=== PATIENT | male | born 1990 | race Caucasian/White ===

== ENCOUNTER 2017-08-07 01:25 | Emergency (ER) | payer MEDICAID ==
--- NOTE | 2017-08-07 01:29 | EDPHY ---
H & P Source: Patient, EMS, Old records - Personal History Tetanus Vaccine Date: 2013 - Medical/Surgical History Hx Asthma: No Hx Chronic Respiratory Disease: No Hx Diabetes: No Hx Cardiac Disease: No Hx Renal Disease: No Hx Cirrhosis: No Hx Alcoholism: No Hx HIV/AIDS: No Hx Splenectomy or Spleen Trauma: No Other PMH: SI with attemptsx2, personality disorder, PTSD, takosubos (see registered dental hygienist) - Social History Smoking Status: Current every day smoker Time Seen by Provider: 08/07/17 01:26 HPI/ROS: HPI The patient presents brought in by ambulance from the crisis Center on M1 hold for medical evaluation. Apparently, the patient has been feeling suicidal for the last several days and his symptoms became more severe today so he brought himself to the crisis Center. He says he is having suicidal thoughts from morning until night and is worried that he may act on them. He does have prior history of suicide attempt. His symptoms became worse recently, he attributes this to divorce from his partner. He does admit to amphetamine use over the last 2 days. He says he is not sleeping or eating well. He has been taking his medications as prescribed, he is concerned that he may overdose on them. REVIEW OF SYSTEMS Constitutional: No fever, no chills. Eyes: No discharge. ENT: No sore throat. Cardiovascular: No chest pain, no palpitations. Respiratory: No cough, no shortness of breath. Gastrointestinal: No abdominal pain, no vomiting. Genitourinary: No hematuria. Musculoskeletal: No back pain. Skin: No rashes. Neurological: No headache. PMHx: Prior history of suicide attempt Soc Hx: Cigarette use, amphetamine use PHYSICAL General Appearance: Alert, no distress Eyes: Pupils equal and round no pallor or injection ENT, Mouth: Mucous membranes moist Respiratory: There are no retractions, lungs are clear to auscultation Cardiovascular: Regular rate and rhythm Gastrointestinal: Abdomen is soft and non-tender, no masses, bowel sounds normal Neurological: A&O, moves all extremities Skin: Warm and dry, no rashes Musculoskeletal: Neck is supple non tender Extremities: symmetrical, full range of motion Psychiatric: Patient is oriented X 3, there is no agitation (Riguzzi,Mary Ann) Constitutional: Initial Vital Signs Temperature (C) 36.8 C 08/07/17 01:46 Heart Rate 74 08/07/17 01:46 Respiratory Rate 16 08/07/17 01:46 Blood Pressure 126/71 H 08/07/17 01:46 O2 Sat (%) 97 08/07/17 01:46 O2 Delivery Mode Room Air Allergies/Adverse Reactions: No Known Allergies Allergy (Unverified 08/07/17 01:44) Home Medications: Medication Instructions Recorded Propranolol HCl 08/07/17 Risperdal 08/07/17 lamOTRIGine 08/07/17 Medical Decision Making ED Course/Re-evaluation: Patient is re-evaluated by me at 7:07 a.m.. He is resting comfortably. He is awaiting evaluation at 1:00 p.m. for tox screen positive for amphetamines and PCP. Patient has no complaints Patient has remained stable. He is being assessed by mental health currently. Care to Dr. Seaman at 3 pm (Yannick Rodgers) Differential Diagnosis: This is a 27-year-old man with past psychiatric history including suicide attempts who presents brought in by ambulance on an M1 hold for suicidal ideation with plan to overdose on his medications. On exam, he has normal vital signs and is generally well-appearing. He denies any medical complaints. He does admit to recent amphetamine use. Differential diagnosis includes depression with suicidal ideation, bipolar disorder with suicidal ideation, substance abuse, acute stress response. In the emergency department, labs were checked, urine toxicology was positive for PCP, amphetamine, marijuana. He was given a dose of Zyprexa for agitation. The patient's slept. Because he his urine toxicology was positive, mental health will evaluate him later in the day. At approximately 7:00 a.m., I anticipate the case will be signed out to the oncoming provider Dr. Rodgers pending psychiatric evaluation. (Mary Ann Pelayo ) Other Provider: Patient turned over to my care at 1500. At 1650, patient has been evaluated by mental health who recommends terminating hold and discharging patient with resources. (Stevie Seaman) - Data Points Laboratory Results: Laboratory Results 08/07/17 01:40 08/07/17 01:40 Medications Given: Discontinued Medications Olanzapine (Zyprexa Zydis) 10 mg PO EDNOW ONE Stop: 08/07/17 01:56 Last Admin: 08/07/17 01:57 Dose: 10 mg Departure - Departure Disposition: Home, Routine, Self-Care Clinical Impression: Suicidal ideation, Polysubstance abuse Condition: Good Instructions: Suicide Prevention for Adults (ED) Referrals: Patient,NotPresent [Unknown] - As per Instructions
[2017-08-07] MEDS ORDERED: OLANZapine DISINTEGR 10 MG TAB ONE (01:49)
[2017-08-07] MEDS ORDERED: OLANZapine DISINTEGR 10 MG TAB PO ONE (01:55)
[2017-08-07 01:58] LABS: PLATELET COUNT 218 10^3/uL (150-400)
[2017-08-07 17:11] VITALS: BP 102/65; PULSE 65; RESP 16; TEMP 98.4; O2SAT 98
== END 2017-08-07 17:23 | disposition home or self-care (01) ==
LOC: EDUNIT#
DX: R45.851 Suicidal ideations (principal); F19.10 Other psychoactive substance abuse, uncomplicated; F17.210 Nicotine dependence, cigarettes, uncomplicated
CPT/HCPCS: 80305; G0480

== ENCOUNTER 2017-10-14 08:58 | Emergency (ER) | payer MEDICAID ==
--- NOTE | 2017-10-14 09:11 | EDPHY ---
General - History Smoking Status: Current every day smoker Narrative: CHIEF COMPLAINT: M1, suicidal HISTORY OF PRESENT ILLNESS: Patient presents by [place] [employer] on an M1 hold for suicidal ideation. Per M1 hold documentation, he was walking in traffic, exhibiting paranoid delusions, and admitting to suicidal ideation. He tells me that he wanted to because he has been unhappy. He has plan was to walk on front of traffic. He says that he did not care for anyone else was hurt when doing so. He denies any complaints otherwise. He does see [facility] for [facility] and was taken there today but sent here for clearance prior to further evaluation. No other associated complaints or modifying factors. PSYCHIATRIC DIAGNOSES: PTSD, attention deficit hyperactivity disorder, MRA, depression PRIOR PSYCHIATRIC EVALUATIONS: Unknown M1/DETAINER: [place] [employer], October 14, 2017, 8:25 a.m. REVIEW OF SYSTEMS: Ten systems reviewed and are negative unless otherwise noted in the HPI EXAMINATION General Appearance: Alert, no distress, unkempt Head: normocephalic, atraumatic Eyes: Pupils equal and round, no conjunctival pallor or injection ENT, Mouth: Mucous membranes moist Neck: Normal inspection, supple, non-tender Respiratory: No retractions or distress Cardiovascular: Regular rate. Good signs of perfusion Gastrointestinal: Abdomen is soft and nondistended. Back: non-tender, no bony abnormalities Neurological: GCS 15. A&O, nonfocal, normal gait Skin: Warm and dry, no rash. Unclean skin Extremities: Nontender, no pedal edema Psychiatric: Depressed mood and flat affect. Exhibiting evidence of paranoid delusions and suicidal ideation with plan of stepping out in front of traffic. DIFFERENTIAL DIAGNOSES: Including but not limited to suicidal ideation, depression, schizophrenia, schizoaffective, bipolar disorder MDM: 9:15 a.m. M1 hold complaint [place] [employer] due to schizophrenia with paranoid delusions, walking in front of traffic with statements of wanting to and willing to harm others to do so. 10:00 a.m. Patient is medically cleared for psychiatric evaluation. 1:00 p.m. Notified by mental health professional. He has been evaluated she recommends placement [facility]SU. She is attempting acceptance at this time. 3:00 p.m. Patient resting comfortably. Still awaiting placement 5:00 p.m. At this time I will hand the care of the patient over to Dr. Seaman. EPS is still attempting to find placement for the patient for inpatient care. Please see his note for final disposition SUPERVISION: Patient was independently examined, but I discussed the case with my secondary supervising physician Dr. Rodgers ([facility]) 0905: Patient has been accepted at [facility] and transport has been arranged. (Niranjan Cummins) Medical Decision Making: I did not see this patient while he was in the emergency department. However his care was discussed with the PA while the patient was in the department. I agree with treatment plan and management (Yannick Rodgers) - Objective Vital Signs: Initial Vital Signs Temperature (C) 36.6 C 10/14/17 09:44 Heart Rate 71 10/14/17 09:44 Respiratory Rate 16 10/14/17 09:44 Blood Pressure 125/75 H 10/14/17 09:44 O2 Sat (%) 97 10/14/17 09:44 O2 Delivery Mode Room Air Allergies/Adverse Reactions: No Known Allergies Allergy (Unverified 08/07/17 01:44) Home Medications: Medication Instructions Recorded Lexapro 10/14/17 Prazosin HCl 10/14/17 Vyvanse 10/14/17 Laboratory Results: Laboratory Results 10/14/17 09:10 10/14/17 09:10 Medications Given: Discontinued Medications Olanzapine (Zyprexa Zydis) 10 mg PO EDNOW ONE Stop: 10/14/17 23:00 Last Admin: 10/14/17 23:02 Dose: Not Given Departure - Departure Disposition: Acute [facility] Clinical Impression: Suicidal ideation Condition: Fair Referrals: Patient,NotPresent [Unknown] - As per Instructions
[2017-10-14 09:33] LABS: PLATELET COUNT 376 10^3/uL (150-400)
[2017-10-14 22:52] VITALS: RESP 18; TEMP 98.6
[2017-10-14] MEDS ORDERED: OLANZapine DISINTEGR 10 MG TAB PO ONE (22:59)
[2017-10-14] MEDS ORDERED: OLANZapine 5 MG TAB ONE (23:00)
[2017-10-15 09:22] VITALS: BP 116/81; PULSE 100; O2SAT 94
== END 2017-10-15 09:23 | disposition short-term general hospital (02) ==
DX: R45.851 Suicidal ideations (principal)
CPT/HCPCS: 80305; G0480

== ENCOUNTER 2017-10-18 00:35 | Emergency (ER) | payer MEDICAID ==
--- NOTE | 2017-10-18 00:42 | EDPHY ---
H & P Source: Patient, EMS - Personal History Tetanus Vaccine Date: 2013 - Medical/Surgical History Hx Asthma: No Hx Chronic Respiratory Disease: No Hx Diabetes: No Hx Cardiac Disease: No Hx Renal Disease: No Hx Cirrhosis: No Hx Alcoholism: No Hx HIV/AIDS: No Hx Splenectomy or Spleen Trauma: No Other PMH: SI with attemptsx2, personality disorder, PTSD, takosubos (see engineering design manager) - Social History Smoking Status: Current every day smoker HPI/ROS: HPI CHIEF COMPLAINT: Suicidal ideation, M1 hold by police HISTORY OF PRESENT ILLNESS: This patient is a 27-year-old male, presents emergency room by EMS and police. He is on M1 hold. Patient presents to the emergency room with suicidal ideation. His plan is to walk in front of traffic and get hit by a car. Past Medical History: Anxiety, PTSD, depression Past Surgical History: No recent surgery Social History: Smokes tobacco, homeless, denies drug use. Family History: Noncontributory ROS REVIEW OF SYSTEMS: A comprehensive 10 point review of systems is otherwise negative aside from elements mentioned in the history of present illness. Exam Constitutional appears unkept, disheveled, triage nursing summary reviewed, vital signs reviewed, awake/alert. Eyes normal conjunctivae and sclera, EOMI, PERRLA. HENT normal inspection, atraumatic, moist mucus membranes, no epistaxis, neck supple/ no meningismus, no raccoon eyes. Respiratory clear to auscultation bilaterally, normal breath sounds, no respiratory distress, no wheezing. Cardiovascular rate normal, regular rhythm, no murmur, no edema, distal pulses normal. Gastrointestinal soft, non-tender, no rebound, no guarding, normal bowel sounds, no distension, no pulsatile mass. Genitourinary no CVA tenderness. Musculoskeletal no midline vertebral tenderness, full range of motion, no calf swelling, no tenderness of extremities, no meningismus, good pulses, neurovascularly intact. Skin pink, warm, & dry, no rash, skin atraumatic. Neurologic awake, alert and oriented x 3, AAOx3, moves all 4 extremities equally, motor intact, sensory intact, CN II-XII intact, normal cerebellar, normal vision, normal speech. Psychiatric flat affect, suicidal ideation Heme/Lymph/Immune no lymphadenopathy. Differential Diagnosis: Includes but is not limited to in a particular order mood disorder, bipolar disorder, depression, anxiety, PTSD, substance abuse, suicidal ideation Medical Decision Making: Patient on M1 hold by police. Patient will need blood draw for medical clearance. Then mental evaluation. Re-evaluation: 0733: No acute events overnight patient has been sleeping. Patient is positive for methamphetamine however he takes Adderall for attention deficit hyperactivity disorder. Patient is pending inpatient psychiatric hospitalization for suicidal ideation history of anxiety and depression. As well as PTSD. Patient is signed over at 7:[address] Heidy Wheeler. (Nicho Jackmna) Constitutional: Initial Vital Signs Temperature (C) 36.7 C 10/18/17 00:54 Heart Rate 76 10/18/17 00:54 Respiratory Rate 16 10/18/17 00:54 Blood Pressure 130/82 H 10/18/17 00:54 O2 Sat (%) 97 10/18/17 00:54 O2 Delivery Mode Room Air Allergies/Adverse Reactions: No Known Allergies Allergy (Unverified 08/07/17 01:44) Home Medications: Medication Instructions Recorded Lexapro 10/14/17 Prazosin HCl 10/14/17 Vyvanse 10/14/17 Medical Decision Making Other Provider: 4:30 a.m. the patient has been accepted at [facility] by Dr. Aguirre. Transfer paperwork completed. (Alex Guillen) I assumed care of this patient at 7:[address] Jackman. He has undergone a mental health evaluation and care awaiting placement. He has been cooperative while under my care. He has no new complaints or requests. His care will be transferred to Dr. Guillen at change of shift (Heidy Wheeler) - Data Points Laboratory Results: Laboratory Results 10/18/17 00:47 10/18/17 00:47 Medications Given: Discontinued Medications Diphenhydramine HCl (Benadryl) 50 mg PO EDNOW ONE Stop: 10/18/17 01:20 Last Admin: 10/18/17 01:24 Dose: 50 mg Lorazepam (Ativan) 1 mg PO ONCE ONE Stop: 10/18/17 16:37 Last Admin: 10/18/17 16:40 Dose: 1 mg Nicotine Polacrilex (Nicorette) 2 mg B PRN PRN PRN Reason: Nicotine Withdrawal Stop: 04/16/18 15:13 Last Admin: 10/18/17 15:21 Dose: 2 mg Departure - Departure Disposition: Other Psych, Not [place] Clinical Impression: Suicidal ideation Condition: Fair Referrals: NONE *PRIMARY CARE P,. [Primary Care Provider] - As per Instructions
[2017-10-18 00:59] LABS: PLATELET COUNT 299 10^3/uL (150-400)
[2017-10-18] MEDS ORDERED: diphenhydrAMINE 25 MG CAP PO ONE (01:19)
[2017-10-18 15:08] VITALS: BP 116/69; RESP 18; TEMP 99
[2017-10-18] MEDS: NICOTINE POLACRILEX 2 MG GUM B PRN ×2 (15:20→15:21)
[2017-10-18 16:01] VITALS: PULSE 75; O2SAT 95
[2017-10-18] MEDS ORDERED: LORazepam 1 MG TAB PO ONE (16:36)
== END 2017-10-18 17:30 ==
LOC: EDUNIT#
DX: R45.851 Suicidal ideations (principal); F17.200 Nicotine dependence, unspecified, uncomplicated
CPT/HCPCS: 80305; G0480

== ENCOUNTER 2017-12-07 14:20 | Inpatient (IN) | payer MEDICAID ==
[2017-12-07] MEDS ORDERED: NALOXONE HCL 0.4 MG/ML INJ ONE (14:33)
--- NOTE | 2017-12-07 14:42 | EDPHY ---
H & P Time Seen by Provider: 12/07/17 14:24 HPI/ROS: HPI Found down. Heroin overdose. 27-year-old male by ambulance. This patient reports that he injected over g of heroin earlier this morning. He was found by bystanders on the [place] bike past cyanotic in pulseless. CPR was administered by bystanders. After about 2- 3 minutes of CPR the patient suddenly came to and sat up. On EMS arrival he was sitting upright. He was responding to questions but appeared sedated and confused. No history of trauma. Patient admits to attempted suicide by heroin overdose. Has a prior history of suicide attempts. Long history of heroin abuse. ROS: Constitutional: No fever, no chills. As above. Eyes: No discharge. No changes in vision. ENT: No sore throat. No nasal congestion or rhinorrhea. Respiratory: No cough. No shortness of breath. Cardiac: No chest pain, no palpitations. Gastrointestinal: No abdominal pain, no vomiting, no diarrhea. Genitourinary: No hematuria. No dysuria or increased frequency with urination. Musculoskeletal: No back pain. No neck pain. No myalgias or arthralgias. Skin: No rashes. Neurological: No headache. No focal weakness or altered sensation. Past medical history: Suicide attempt x2, major depressive disorder, personality disorder, PTSD, takotsubo cardiomyopathy. Social history: Smoker. Homeless. Currently here by himself. Denies alcohol. Denies other ingestion. As above. Physical Exam: General Appearance: Alert, flat affect. Dirty, disheveled in appearance. This patient is responding to questions appropriately and in full sentences. This patient appears generally well-hydrated and well-nourished. Eyes: Pupils equal and round small in symmetrically reactive at 2-1 mm. No lid edema, erythema or injection. ENT, Mouth: Mucous membranes are moist. The pharyngeal tissues are unremarkable. No edema or swelling. No asymmetry suggestive of abscess. No erythema or exudates. No tongue lacerations or abrasions. Respiratory: There are no retractions, lungs are clear to auscultation with good air movement bilaterally. Cardiovascular: Regular rate and rhythm. No murmur. Gastrointestinal: Abdomen is soft and nontender, no masses, bowel sounds normal. No focal tenderness at McBurney's point. No Barajas sign. Neurological: Motor sensory function is grossly intact. Cranial nerves are normal. Cerebellar function intact. Skin: Warm and dry, no rashes. Musculoskeletal: Neck is supple and nontender. Extremities are symmetrical. All joints range without pain or impingement. Psychiatric: No agitation. Flat affect. Database: EKG: EKG time is 4:10 p.m.; EKG shows a narrow complex normal sinus rhythm with a ventricular rate of 86. Early repolarization pattern. Probable left ventricular hypertrophy. The NM, QRS, QT intervals are within normal limits. There are no ST-T wave changes indicative of ischemic or injury pattern. No evidence of right heart strain. Interpreted by me. Imaging: Chest x-ray AP portable; the cardiac mediastinal silhouette is unremarkable. No evidence of infiltrate or pneumothorax. No acute cardiopulmonary disease process noted. Interpreted by me. Procedures: Emergency department course: IV established by EMS. Patient placed on a manager cardiac. Placed on oxygen 2 L by nasal cannula. Vital signs reviewed. Patient placed on a detainer at 2: 40 p.m.. [facility] notified. Narcan at the bedside. 3:15 p.m., the patient has been complaining of itching. He was given 25 mg of IV Benadryl. 4:30 p.m., patient transferred to room 17. Laboratory work and drug screens reviewed. Urine drug significant for marijuana and opiates. Patient medically cleared from my perspective for behavioral health evaluation. 5:20 p.m. I spoke with Faye with [facility]. He was placed on an M1 hold at this time as well. 6:30 p.m., the patient is dropping his pulse ox when he is not on nasal cannula oxygen into the upper 80s. Plan at this time will be to admit him to the ICU for observation and further metabolism. [facility] is aware of this. There they will evaluate the patient when he is medically clear. Chest x-ray will be obtained shortly. I spoke with on-call hospitalist Dr. Campos. Case discussed in detail with her. She accepts the patient for admission. The patient was admitted to the ICU in stable condition. Differential Diagnosis: The differential diagnosis on this patient includes but is not limited to heroin overdose, suicide attempt, major depression. Assault, traumatic brain injury, other significant traumatic injury, arrhythmia unlikely. This represents a partial list of diagnoses considered. These considerations are based on history, physical exam, past history, reassessment and diagnostic testing. Smoking Status: Current every day smoker Constitutional: Initial Vital Signs Heart Rate 81 12/07/17 14:25 Respiratory Rate 20 12/07/17 14:25 Blood Pressure 132/88 H 12/07/17 14:25 O2 Sat (%) 100 12/07/17 14:25 O2 Delivery Mode Nasal Cannula O2 (L/minute) 2 Allergies/Adverse Reactions: No Known Allergies Allergy (Unverified 12/07/17 14:34) Home Medications: Medication Instructions Recorded Lexapro 10/14/17 Prazosin HCl 10/14/17 Vyvanse 10/14/17 Gabapentin 12/07/17 Medical Decision Making - Data Points Laboratory Results: Laboratory Results 12/07/17 14:21 12/07/17 14:21 12/07/17 12/07/17 12/07/17 15:50 14:21 14:21 WBC 7.98 10^3/uL 10^3/uL (3.80-9.50) RBC 5.30 10^6/uL 10^6/uL (4.40-6.38) Hgb 16.2 g/dL g/dL (13.7-17.5) Hct 48.9 % % (40.0-51.0) MCV 92.3 fL fL (81.5-99.8) MCH 30.6 pg pg (27.9-34.1) MCHC 33.1 g/dL g/dL (32.4-36.7) RDW 14.1 % % (11.5-15.2) Plt Count 280 10^3/uL 10^3/uL (150-400) MPV 11.2 fL fL (8.7-11.7) Neut % (Auto) 51.8 % % (39.3-74.2) Lymph % (Auto) 38.0 % % (15.0-45.0) [place] % (Auto) 6.9 % % (4.5-13.0) Eos % (Auto) 1.9 % % (0.6-7.6) Baso % (Auto) 1.0 % % (0.3-1.7) Nucleat RBC Rel Count 0.0 % % (0.0-0.2) Absolute Neuts (auto) 4.14 10^3/uL 10^3/uL (1.70-6.50) Absolute Lymphs (auto) 3.03 10^3/uL H 10^3/uL (1.00-3.00) Absolute Monos (auto) 0.55 10^3/uL 10^3/uL (0.30-0.80) Absolute Eos (auto) 0.15 10^3/uL 10^3/uL (0.03-0.40) Absolute Basos (auto) 0.08 10^3/uL 10^3/uL (0.02-0.10) Absolute Nucleated RBC 0.00 10^3/uL 10^3/uL (0-0.01) Immature Gran % 0.4 % % (0.0-1.1) Immature Gran # 0.03 10^3/uL 10^3/uL (0.00-0.10) Sodium 145 mEq/L mEq/L (135-145) Potassium 4.4 mEq/L mEq/L (3.5-5.2) Chloride 105 mEq/L mEq/L (97-110) Carbon Dioxide 28 mEq/l mEq/l (22-31) Anion Gap 12 mEq/L mEq/L (8-16) BUN 6 mg/dL L mg/dL (7-23) Creatinine 0.7 mg/dL mg/dL (0.7-1.3) Estimated GFR > 60 Glucose 171 mg/dL H mg/dL (70-100) Calcium 9.1 mg/dL mg/dL (8.5-10.4) Salicylates < 1.0 mg/dL L mg/dL (2.0-20.0) Urine Opiates Screen NON-NEGATIVE H (NEGATIVE) Acetaminophen < 10 mcg/mL L mcg/mL (10-30) Urine Barbiturates NEGATIVE (NEGATIVE) Ur Phencyclidine Scrn NEGATIVE (NEGATIVE) Ur Amphetamine Screen NEGATIVE (NEGATIVE) U Benzodiazepines Scrn NEGATIVE (NEGATIVE) Urine Cocaine Screen NEGATIVE (NEGATIVE) U Marijuana (THC) Screen NON-NEGATIVE H (NEGATIVE) Ethyl Alcohol < 10 mg/dL mg/dL (0-10) Medications Given: Discontinued Medications Diphenhydramine HCl (Benadryl Injection) 25 mg IVP EDNOW ONE Stop: 12/07/17 14:55 Last Admin: 12/07/17 14:57 Dose: 25 mg Nicotine (Nicoderm Cq) 21 mg TD EDNOW ONE Stop: 12/07/17 17:17 Last Admin: 12/07/17 17:21 Dose: 21 mg Departure - Departure Disposition: [facility] Inpatient Acute Clinical Impression: Heroin overdose, Suicide attempt, Hypoxia Referrals: Patient,NotPresent [Unknown] - As per Instructions
[2017-12-07 14:54] LABS: PLATELET COUNT 280 10^3/uL (150-400)
--- NOTE | 2017-12-07 16:12 | CPEKG ---
Heart Rate: 86 RR Interval: 698 P-R Interval: 140 QRSD Interval: 102 QT Interval: 360 QTC Interval: 431 P [place]: 56 QRS [place]: 47 T Wave [place]: 47 EKG Severity - ABNORMAL ECG - EKG Impression: SINUS RHYTHM EKG Impression: PROBABLE LEFT VENTRICULAR HYPERTROPHY EKG Impression: ST ELEV, PROBABLE NORMAL EARLY REPOL PATTERN Electronically Signed By: Linda Seymour 07-Dec-2017 20:28:12
[2017-12-07] MEDS ORDERED: NICOTINE 21 MG/24 HR PATCH TD ONE (17:16)
[2017-12-07] MEDS ORDERED: ONDANSETRON 4 MG/2 ML VIAL IVP PRN (18:36)
[2017-12-07] MEDS ORDERED: ONDANSETRON DISINTEGRATING 4 MG TAB PO PRN (18:36)
[2017-12-07] MEDS ORDERED: ACETAMINOPHEN 325 MG TAB PO PRN (18:36)
[2017-12-07] MEDS ORDERED: NS 1,000 ML IV ONE (20:12)
[2017-12-07] MEDS: NICOTINE POLACRILEX 2 MG GUM B PRN (20:32)
[2017-12-07] MEDS ORDERED: OLANZapine 5 MG TAB ONE (21:01)
[2017-12-07] MEDS: OLANZapine 10 MG TAB PO SCH (21:12)
[2017-12-07] MEDS ORDERED: IBUPROFEN 600 MG TAB PO PRN (22:16)
--- NOTE | 2017-12-07 22:31 | GHP ---
[f rep st] HISTORY AND PHYSICAL DATE OF ADMISSION: 12/07/2017 CHIEF COMPLAINT: Suicide attempt. HISTORY OF PRESENT ILLNESS: 27-year-old male brought in by ambulance after injecting over a gram of heroin earlier today. He was [place] by bystanders on [place] [address], cyanotic, pulseless. CPR was administered. After 2-3 minutes, he suddenly came to and sat up. He admits to suicide by heroin. He says this is the first time he has ever used this drug. He does have a history of prior suicide a ttempts. He states that he is feeling depressed and has nothing to live for. Upon ER physician inte [place], it appears that he has been using heroin longer. Patient states his best friend recently and that is why he has been more depressed. Denies emery ucinations, but has intruding thoughts. Currently denies any chest pain, shortness of breath, dizzin ess, or lightheadedness. He says he is physically okay, but his main issue is in his head. He is followed at [facility] and said he just saw them yesterday. REVIEW OF SYSTEMS: I completed a 10-point review of systems, negative except as noted in HPI. PAST MEDICAL HISTORY: Suicide attempt x2, major depressive disorder, personality disorder, PTSD, his tory of Takotsubo cardiomyopathy. SOCIAL HISTORY: Smokes a pack a day, living at the homeless care home. Denies alcohol. Per my interv iew, denies heroin abuse, but has endorsed it to others. FAMILY HISTORY: Mother, depression. PAST SURGICAL HISTORY: None. HOME MEDICATIONS: Prazosin, Zyprexa 20 mg q.h.s., Vyvanse 20 daily, gabapentin 600 mg t.i.d., Lexapr o 20 mg daily, Pristiq 100 mg daily. ALLERGIES: No known drug allergies. PHYSICAL EXAMINATION: VITAL SIGNS: Temperature 36.5, blood pressure is 123/73, heart rate in the 70 s, respirations 14, 92% on room air. GENERAL: Sitting up, disheveled, anxious, rocking back and for th. HEENT: Kev cheeks and face, dry mucous membranes. CV: Regular rate and rhythm. No murmurs, gallops, or rubs. LUNGS: Clear. Diminished at the bases. ABDOMEN: Soft, nontender, nondistended . Positive bowel sounds. : No [place]. MUSCULOSKELETAL: 5/5 upper and lower extremity strength. NEURO: 2 through 12 intact. PSYCH: He is anxious. Has a flat affect. He is alert and oriented x3 . LABS: WBC 7.9, hemoglobin 16, hematocrit 48, platelets 280. Sodium 145, potassium 4.4, chloride 105 , carbon dioxide 28, creatinine 0.7, glucose 171. Chest x-ray is personally reviewed by me. Bilateral streaky opacities, but no . EKG is personally reviewed by me. LVH, ST-elevation, which appears to be repolarization. No old to compare. ASSESSMENT/PLAN: 1. Suicide attempt, secondary to heroin injection. Endorses suicidal ideations and thoughts. He is placed on an M1 hold. Will be monitored in the intensive care unit. Negative salicylate and Tyleno l levels. Patient is followed by [facility]. Will call [facility] in the morning. 2. Pulseless secondary to heroin overdose. Resuscitated by bystander with cardiopulmonary resuscita tion. He is currently hemodynamically stable. Electrocardiogram shows left ventricular hypertrophy, probably repolarization. Check a troponin. 3. Heroin/tetrahydrocannabinol abuse: Patient was counseled on cessation. 4. History of depression/post traumatic stress disorder, personality disorder: Will resume his home Zyprexa tonight. We will discuss with the psychiatric team in the morning on his other medications. 5. Diet: Regular. 6. Deep venous thrombosis prophylaxis low risk. 7. Patient warrants observation admission given acute suicide attempt, cardiac arrest, requiring tel emetry, pulse oximetry, and further psychiatric evaluation. /[id number]/MODL
[2017-12-07] MEDS: LORazepam 1 MG TAB PO PRN (23:16)
--- NOTE | 2017-12-08 09:23 | PDMN ---
Medical Necessity Medical necessity: Pt on M1 hold, meets IP criteria; est los >2 mn for suicide attempt & cardiac arrest secondary to heroin overdose; admit to ICU for further monitoring & Psych eval; hx suicide attempt x2, major depressive disorder, personality disorder, PTSD, homelessness & Takotsubo cardiomyopathy; per H&P & order 12/07/17
[2017-12-08] MEDS: NICOTINE POLACRILEX 2 MG GUM B PRN (09:25)
--- NOTE | 2017-12-08 12:21 | ASMTCASEMG ---
Living Arrangements What is your living Answers: Alone arrangement? Who do you live with? Type Of Residence What kind of residence do Answers: Homeless you live in? Discharge Plan Comments Coordination Status Comments Notes: Patient is a 27yo single male who admits to suicide by heroin. Patient was found by bystanders on the [place] bike path where CPR was administered and then he was transported by ambulance to the ER. Patient is homeless and states he is depressed and has nothing to live for. He has been staying at the homeless nursing home. Patient will get psych eval with [facility] when medically clear. D/C needs TBD. Patient most likely will go to a behavioral health unit. CM available for consult or d/c needs. Date Signed: 12/08/2017 12:20 PM Electronically Signed By:Leonarda Jerez LCSW
--- NOTE | 2017-12-08 13:57 | HOSPPROG ---
Hospitalist Progress Note Assessment/Plan: * Suicide attempt * d/t heroin od * medially cleared *severe depression * psych eval pending * it was a pretty severe suicide attempt. probably needs placement Subjective: feeling depressed Objective: Vital Signs Temp Pulse Resp BP Pulse Ox 36.6 C 70 16 96/55 L 91 L 12/07/17 20:08 12/08/17 08:00 12/08/17 08:00 12/08/17 08:00 12/08/17 08:00 12/07/17 12/08/17 12/09/17 05:59 05:59 05:59 Intake Total 1250 Balance 1250 - Physical Exam Constitutional: no apparent distress, appears nourished, not in pain Eyes: anicteric sclera, EOMI Ears, Nose, Mouth, Throat: moist mucous membranes Respiratory: no respiratory distress Skin: warm Neurologic: AAOx3 Psychiatric: depressed, flat affect ICD10 Worksheet Patient Problems: Problems Problem Status Onset Heroin overdose Acute Hypoxia Acute Suicide attempt Acute
[2017-12-08] MEDS ORDERED: GABAPENTIN 300 MG CAP PO SCH (22:45)
[2017-12-08] MEDS ORDERED: NON-FORMULARY NEW DRUG (Olanzapine [Zyprexa] 20 MG) PO SCH (22:45)
[2017-12-08] MEDS: OLANZapine 10 MG TAB PO SCH (22:52)
[2017-12-09] MEDS: NICOTINE POLACRILEX 2 MG GUM B PRN (06:51)
[2017-12-09] MEDS: LORazepam 1 MG TAB PO PRN (06:52)
[2017-12-09 08:20] VITALS: BP 108/61; PULSE 79; RESP 12; TEMP 98.6; O2SAT 93
[2017-12-09] MEDS ORDERED: GABAPENTIN 300 MG CAP PO SCH (09:00)
--- NOTE | 2017-12-09 09:26 | PDIAF ---
- Diagnosis Diagnosis: suicide attempt Code Status: Full Code - Medication Management Discharge Medications: Medications to Continue on Transfer Desvenlafaxine Succinate [Pristiq] 100 mg PO DAILY 12/07/17 [Last Taken Unknown] Lisdexamfetamine Dimesylate [Vyvanse] 20 mg PO DAILY 12/07/17 [Last Taken Unknown] OLANZapine [Zyprexa] 20 mg PO HS 12/07/17 [Last Taken Unknown] Gabapentin [Neurontin 300 MG (*)] 300 mg PO DAILY 12/08/17 [Last Taken Unknown] Gabapentin [Neurontin 300 MG (*)] 600 mg PO HS 12/08/17 [Last Taken Unknown] Discharge Medications: Refer to the Discharge Home Medication list for PRN reason. - Follow Up Care Current Providers and Referrals: Patient,NotPresent [Unknown] - As per Instructions
--- NOTE | 2017-12-09 14:54 | GDS ---
[f rep st] DISCHARGE SUMMARY DISCHARGE DIAGNOSES: 1. Suicide attempt. 2. Severe depression. HISTORY: This is a 27-year-old male with a history of severe depression and multiple suicide attempt s in the past. He was found in [place] having ingested a gram of heroin in an overt suicide attempt. He was found pulseless, and CPR was initiated. HOSPITAL COURSE: Patient came to the emergency department alert. He was monitored overnight. TLC w as consulted. He is being transferred to inpatient psych. He is medically cleared. /[id number]/MODL
== END 2017-12-09 10:00 | DRG 918 ==
LOC: EDUNIT# → EEVIPCON 18:33 → INTOOBSV 18:33 → OBSVTOIN 18:33 → F2N 21:36
PROVIDERS: ADMIT Internal Medicine; ATTEND Internal Medicine
DX: T40.1X2A Poisoning by heroin, intentional self-harm, initial encounter (principal); F11.20 Opioid dependence, uncomplicated; F32.9 Major depressive disorder, single episode, unspecified; F43.10 Post-traumatic stress disorder, unspecified; F12.10 Cannabis abuse, uncomplicated; Z72.0 Tobacco use; Z59.0 Homelessness; Z91.5 Personal history of self-harm
CPT/HCPCS: 80305; 96374; G0480; J1200; J2310

== ENCOUNTER 2017-12-09 10:20 | Inpatient (IN) | payer MEDICAID ==
[2017-12-09] MEDS ORDERED: MAGNESIUM HYDROXIDE 30 ML UDCUP PO PRN (11:13)
[2017-12-09] MEDS ORDERED: MAG HYDROX/AL HYDROX/SIMETH 30 ML UDCUP PO PRN (11:13)
[2017-12-09] MEDS ORDERED: ACETAMINOPHEN 325 MG TAB PO PRN (11:13)
[2017-12-09 11:57] VITALS: RESP 16; O2SAT 94
[2017-12-09] MEDS: NICOTINE POLACRILEX 2 MG GUM B PRN ×2 (12:29→17:48)
[2017-12-09] MEDS: OLANZapine DISINTEGR 10 MG TAB PO PRN (17:49)
[2017-12-10] MEDS: LORazepam 0.5 MG TAB PO PRN ×2 (06:24→10:40)
[2017-12-10 07:12] VITALS: BP 131/74; PULSE 90; TEMP 97.5
[2017-12-10] MEDS: NICOTINE POLACRILEX 2 MG GUM B PRN ×2 (07:59→10:04)
[2017-12-10] MEDS: OLANZapine DISINTEGR 10 MG TAB PO PRN (08:44)
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
== END 2017-12-10 12:41 | disposition home or self-care (01) | DRG 880 ==
LOC: BBEH 10:20
PROVIDERS: ADMIT Psychiatry & Neurology Psychiatry; ATTEND Psychiatry & Neurology Psychiatry
DX: F41.1 Generalized anxiety disorder (principal); F43.10 Post-traumatic stress disorder, unspecified; F90.0 Attention-deficit hyperactivity disorder, predominantly inattentive type; F12.90 Cannabis use, unspecified, uncomplicated; Z59.0 Homelessness